=== PATIENT | female | born 1950 | race Caucasian/White ===

== ENCOUNTER 2017-11-28 05:26 | Day surgery (SDC) | payer OTHER ==
[~2017-11-28] VITALS: Ht 160 cm; Wt 88.5 kg
--- NOTE | ~2017-11-28 | O ---
[facility] [place] [address] OPERATIVE REPORT Name: BROWNJESSICA KHOA Room #: DEP [facility] M..#: [id number] Admission: 11/28/17 Attend Phys: Blayne Mary MD Discharge: 11/28/17 Date of : 52 Report #: [id number] THIS REPORT FOR: //name// CC: CHAVO Teixeira MD Physician staff Blayne Mary DATE OF SERVICE: 11/28/2017 PREOPERATIVE DIAGNOSIS: Right orbitally invasive basal cell carcinoma. POSTOPERATIVE DIAGNOSIS: Right orbitally invasive basal cell carcinoma. PROCEDURE: Right orbital exenteration with musculocutaneous flap. SURGEON: Blayne Mary M.D. ELEVATOR CONSTRUCTOR: None. ANESTHESIA: General. COMPLICATIONS: None. ESTIMATED BLOOD LOSS: 10 mL. INDICATIONS FOR SURGERY: This ever so pleasant 67-year-old woman has a large orbitally invasive basal cell carcinoma that is covered up with normal skin in the inferomedial orbit. The tumor is so large that it is pressing her globes superolaterally. She presents today for right orbital exenteration. Informed consent was obtained to include but not limited to potential risk for bleeding, infection, and the need for further surgery or treatment. She is keenly aware that she may end up needing to have external beam radiation because of the extent of her tumor. DESCRIPTION OF PROCEDURE: The patient was taken to the operating room where general anesthesia was administered. The right orbit was then generously infiltrated peripherally with Xylocaine with epinephrine mixed with Marcaine and Wydase. A fine tip skin marking pen was then utilized to outline a superciliary incision and then an incision inferiorly that went down to the infraorbital rim, which was the area where the tumor could be palpated. The line on the skin was marked inferior to where the lesion could be palpated to ensure that the lesion would be included in the initial incision. The incision was then made 360 degrees with a 15 blade. The dissection was carried out superiorly up on to the tarsal plate in the upper lid retractors back into the superior orbit. [address] [address] OPERATIVE REPORT Name: JESSICA BROWN Room #: DEP [facility] M.Ervin.#: [id number] Admission: 11/28/17 Attend Phys: Blayne Mary MD Discharge: 11/28/17 Date of : 52 Report #: [id number] monopolar cautery was used throughout the case. The lateral canthal tendon was then disinserted into the lateral orbital tubercle, which allowed the lids to move a little bit more freely. An incision was then made inferiorly down to the inferior orbital rim across the width of the lid and then medially where the medial canthal tendon was disinserted. A [place] periosteal elevator was then used to elevate the orbital contents inferiorly and medially to get behind the tumor. The superior rectus muscle and the lateral rectus muscle in addition to the inferior oblique were isolated on a muscle hook and amputated where they attached to the globe. The optic nerve and the inferior rectus along with the medial rectus were clamped with a hemostat for 3 minutes on three successive occasions and one final clamping for 2 more minutes. That tissue was then incised and cut with a Cabrera scissor. The tissue was then amputated coming around anteriorly and then this passed off the field. This demonstrated that there was additional tissue in the orbit that appeared to be more basal cell carcinoma. This tissue was relatively easily palpated because it was surrounded by relatively normal fat. This tissue was then cut with a cuff of approximately a centimeter of normal appearing fat around its periphery. Two separate specimens were thus sent. The socket was then palpated and no more additional nodular material could be isolated. A piece of periosteum inferomedially was sent off for frozen sections as it appeared to potentially be positive. This was right down on the bone. Multiple 1 cm2 of Gelfoam were then placed back in the anterior orbit on top of the soft tissue. A myocutaneous flap was then developed superiorly and rotated to cover the defect over the prior surface of the eye. Multiple interrupted buried 5-0 Vicryl sutures were placed across the entire wound. A 6-0 plain gut suture was used then to close the skin. The pathologist then returned that the tissue that we sent was almost entirely basal cell carcinoma indicating that she still had residual tumor in the periosteum inferiorly and medially. The patient was then transported to the recovery area having tolerated the procedure well with the knowledge that she will require external beam radiation postoperatively. <ELECTRONICALLY SIGNED> By: Blayne Mary MD 12/02/17 0620 [id number] Blayne Mary MD /nt
[~2017-11-28 05:26] MED LIST: COZAAR 25 MG TA25 M1 PO; MELATONIN1 MG PO
[2017-11-28 08:46] VITALS: BP 152/69
== END 2017-11-28 13:30 | disposition home or self-care (01) ==
LOC: OR 05:26 → TBA 05:26 → OR 08:00
DX: C44.81 Basal cell carcinoma of overlapping sites of skin (principal); I10 Essential (primary) hypertension; K21.9 Gastro-esophageal reflux disease without esophagitis; Z79.899 Other long term (current) drug therapy; Z98.51 Tubal ligation status; Z98.890 Other specified postprocedural states
CPT/HCPCS: 50010; 50101; 50261; 50386; 50398; 51636; 56528; 56531; 56637; 62110; 62900; 64037; 70005